=== PATIENT | male | born 1935 ===

== ENCOUNTER → 2023-08-10 | Outpatient (CLI) | payer OTHER ==
[~2023-08-10] MED LIST: COZAAR25 MG; SYNTHROID50 MCG; TAMS0.4C
== END | disposition home or self-care (01) ==
LOC: SONOGRAMA 09:49
PROVIDERS: ATTEND Internal Medicine Endocrinology, Diabetes & Metabolism
DX: E04.1 Nontoxic single thyroid nodule (principal)

== ENCOUNTER 2024-11-02 07:06 | Outpatient (CLI) | payer OTHER | END 2024-11-02 07:09 | disposition home or self-care (01) | LOC: SONOGRAMA 07:06 | PROVIDERS: ATTEND Internal Medicine Gastroenterology | DX: R10.9 Unspecified abdominal pain (principal) ==